=== PATIENT | male | born 1955 | race Caucasian/White ===

== ENCOUNTER 2022-08-06 11:51 | Inpatient (IN) | payer OTHER ==
--- OUTSIDE RECORDS SUMMARY | 2022-08-06 11:55 | XMS REPORT | Continuity of Care Document ---
:1955 Author Organization [facility] t Address [address] [place] [address] Care Team Providers Name Role Phone Jorge Alcaraz MD Primary Care Physician [phone] Jorge Alcaraz MD Attending Clinician JORGE ALCARAZ Attending Clinician Unavailable Windy Sethi Attending Clinician WINDY WISEMAN Attending Clinician Unavailable JOSE MARTINEZ Attending Clinician Unavailable Jose Martinez MD Attending Clinician Nurse, Vls Plastic Surg Attending Clinician Unavailable Doctor Unassigned, [place] Attending Clinician Unavailable Only, Adc Test Attending Clinician Unavailable Adan Ray MD Attending Clinician Lab, Ang - Db Attending Clinician Unavailable CHACHO CARRASCO Attending Clinician Unavailable ADAN RAY Attending Clinician Unavailable ADAN RAY Attending Clinician Unavailable Lab, Adc Fam Pob I Attending Clinician Unavailable Bassam Rios DO Attending Clinician BASSAM RIOS Attending Clinician Unavailable BASSAM RIOS Attending Clinician Unavailable Maycol Rogel MD Attending Clinician Elmer Mcghee MD Attending Clinician Kamilah Walker Attending Clinician Provider, [facility] Attending Clinician Unavailable KAMILAH LORENZO Attending Clinician Unavailable JOSE MARTINEZ Admitting Clinician Unavailable Jose Martinez MD Admitting Clinician Elmer Mcghee MD Admitting Clinician Payers Payer Name Policy Type Policy Number Effective Date Expiration Date Travis GAN CHOICE POS [id number] 2019 00:00:00 II Problems Condition Condition Condition Status Onset Resolution Last Treating Co mments Source Name Details Category Date Date Treatment Clinician Date Bilateral Bilateral Disease Active Overview: Univers carpal carpal 2-24 Formattin ity of tunnel tunnel 00:00: 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 Added automatic ally from request for surgery [id number] Dyspnea Dyspnea Disease Active Univers 8-10 ity of 00:00: [address] Obesity Obesity Disease Active Univers (BMI (BMI 8-10 ity of 30-39.9) 30-39.9) 00:00: [address] Hyperchole Hyperchole Disease Active 2014-09 U nivers steremia steremia 17 ity of 00:: [address] Erectile Erectile Disease Active 2014-09 Unive rs dysfunctio dysfunctio 17 it y of n n 00:00: [address] Essential Essential Disease Active 2014-09 Uni vers hypertensi hypertensi -13 it y of on on 00:00: [address] Allergies, Adverse Reactions, Alerts Allergy Allergy Status Severity Reaction(s) Onset Inactive Treating Comm ents Source Name Type Date Date Clinician NO KNOWN Drug Active Univers ALLERGIE Class ity of S [facility] Social History Social Habit Start Date Stop Date Quantity Comments Source Exposure to 2022-07-26 2022-08-05 Yes [facility] SARS-CoV-2 00:00:00 11:28:00 [facility] (event) [place] Tobacco use and 2022-07-29 2022-07-29 Smokeless tobacco Un iversity of exposure 00:00:00 00:00:00 non-user [facility] Alcohol intake 2022-07-29 2022-07-29 2.57 /d University of 00:00:00 00:00:00 [facility] Sex [birth year] Universit y of 00:00:00 00:00:00 [facility] Smoking Status Start Date Stop Date Source Never smoked tobacco [facility] Medications Ordered Filled Start Stop Current Ordering Indication Dosage Frequency Signature Comments Components Source Medication Medication Date Date Medication? Clinician (SIG) Name Name albuterol 2021-09 Yes INHALE TWO Un bridget 90 1-28 (2) PUFFS ity of mcg/actuati 00:00: EVERY FOUR [place] on inhaler 00 HOURS. Medical Branch methylPREDN 2021-09 Yes USE Univ ers ISolone 4 1-28 DIRECTED ity of mg tablets 00:00: [place]AGE [place] [facility] albuterol 2021-09 Yes INHALE TWO Un bridget 90 1-28 (2) PUFFS ity of mcg/actuati 00:00: EVERY FOUR [place] on inhaler 00 HOURS. Medical Branch methylPREDN 2021-09 Yes USE Univ ers ISolone 4 1-28 DIRECTED ity of mg tablets 00:00: [place] PACKAGE [place] [facility] benzonatate 2021-09 Yes [id number] 100mg Take 1 Univers (TESSALON 1-23 capsule by ity of PERLES) 100 00:00: mouth [place] mg capsule 00 every 8 Medica l (eight) Branch hours as needed for Cough. azithromyci 2021-09 Yes [id number] Take 500 Univers n 250 mg 1-23 mg PO day ity of tablet 00:00: 1, then [place] 00 250 mg PO Medical days 2 to Branch 5 benzonatate 2021-09 Yes [id number] 100mg Take 1 Univers (TESSALON 1-23 capsule by ity of PERLES) 100 00:00: mouth [place] mg capsule 00 every 8 Medica l (eight) Branch hours as needed for Cough. azithromyci 2021-09 Yes [id number] Take 500 Univers n 250 mg 1-23 mg PO day ity of tablet 00:00: 1, then [place] 00 250 mg PO Medical days 2 to Branch 5 benzonatate 2021-09 Yes [id number] 100mg Take 1 Univers (TESSALON 1-23 capsule by ity of PERLES) 100 00:00: mouth [place] mg capsule 00 every 8 Medica l (eight) Branch hours as needed for Cough. azithromyci 2021-09 Yes [id number] Take 500 Univers n 250 mg 1-23 mg PO day ity of tablet 00:00: 1, then [place] 00 250 mg PO Medical days 2 to Branch 5 benzonatate 2021-09 Yes [id number] 100mg Take 1 Univers (TESSALON 1-23 capsule by ity of PERLCURT) 100 00:00: mouth [place] mg capsule 00 every 8 Medica l (eight) Branch hours as needed for Cough. benzonatate 2021-09 Yes [id number] 100mg Take 1 Univers (TESSALON 1-23 capsule by ity of PERLpayasUgym) 100 00:00: mouth [place] mg capsule 00 every 8 Medica l (eight) Branch hours as needed for Cough. azithromyci 2021-09- No [id number] Take 500 Univers n 250 mg 1-23 11-30 mg PO day ity o f tablet 00:00: 00:00 1, then [place] 00 :00 250 mg PO Medical days 2 to Branch 5 azithromyci 2021-09- No [id number] Take 500 Univers n 250 mg 1-23 11-30 mg PO day ity o f tablet 00:00: 00:00 1, then [place] 00 :00 250 mg PO Medical days 2 to Branch 5 No known No Univers medications 4-20 ity of 11:04: [place] 33 Medical Branch Ibuprofen 2021- No [id number] 600mg Take 3 Univers 200 mg 11-25 [id number] capsules ity of capsule 00:00: 04:59 by mouth [place] 00 :00 every 6 Medical (six) Branch hours as needed for Pain (scale 4-6) (Alternate with Tylenol) for up to 30 days. acetaminoph 2021- No [id number] 325mg Take 1 Univers en 11-25 [id number] tablet by ity of (TYLENOL) 00:00: 04:59 mouth [place] 325 mg 00 :00 every 6 Medical tablet (six) Branch hours as needed for Pain (scale 4-6) or Alternate with ibuprofen for pain scale 4-6 for up to 30 days. Immunizations Ordered Filled Immunization Date Status Comments [facility] e Immunization Name Name SARS-COV-2 COVID-19 2021-01-01 Completed Unive rsity of MODERNA VACCINE 00:00:00 [place] Med ical Branch SARS-COV-2 COVID-19 2021-01-01 Completed Unive rsity of MODERNA VACCINE 00:00:00 [place] Med ical Branch SARS-COV-2 COVID-19 2021-01-01 Completed Unive rsity of MODERNA 12+ YRS 00:00:00 [place] Med ical VACCINE Branch SARS-COV-2 COVID-19 2021-01-01 Completed Unive rsity of MODERNA 12+ YRS 00:00:00 [place] Med ical VACCINE Branch SARS-COV-2 COVID-19 2021-01-01 Completed Unive rsity of MODERNA 12+ YRS 00:00:00 [place] Med ical VACCINE Branch SARS-COV-2 COVID-19 2021-01-01 Completed Unive rsity of MODERNA 12+ YRS 00:00:00 [place] Med ical VACCINE Branch SARS-COV-2 COVID-19 2021-01-01 Completed Unive rsity of MODERNA 12+ YRS 00:00:00 [place] Med ical VACCINE Branch SARS-COV-2 COVID-19 2020-12-04 Completed Unive rsity of MODERNA VACCINE 00:00:00 [place] Med ical Branch SARS-COV-2 COVID-19 2020-12-04 Completed Unive rsity of MODERNA VACCINE 00:00:00 [place] Med ical Branch SARS-COV-2 COVID-19 2020-12-04 Completed Unive rsity of MODERNA 12+ YRS 00:00:00 [place] Med ical VACCINE Branch SARS-COV-2 COVID-19 2020-12-04 Completed Unive rsity of MODERNA 12+ YRS 00:00:00 [place] Med ical VACCINE Branch SARS-COV-2 COVID-19 2020-12-04 Completed Unive rsity of MODERNA 12+ YRS 00:00:00 [place] Med ical VACCINE Branch SARS-COV-2 COVID-19 2020-12-04 Completed Unive rsity of MODERNA 12+ YRS 00:00:00 [place] Med ical VACCINE Branch SARS-COV-2 COVID-19 2020-12-04 Completed Unive rsity of MODERNA 12+ YRS 00:00:00 [place] Med ical VACCINE Branch TDAP (ADACEL) 2016-09-07 Completed University of VACCINE 00:00:00 [place] [facility] TDAP (ADACEL) 2016-09-07 Completed University of VACCINE 00:00:00 [place] [facility] [place] TDAP (ADACEL) 2016-09-07 Completed University of VACCINE 00:00:00 [facility] TDAP (ADACEL) 2016-09-07 Completed University of VACCINE 00:00:00 [facility] TDAP (ADACEL) 2016-09-07 Completed University of VACCINE 00:00:00 [facility] TDAP (ADACEL) 2016-09-07 Completed University of VACCINE 00:00:00 [facility] TDAP (ADACEL) 2016-09-07 Completed University of VACCINE 00:00:00 [facility] Vital Signs Vital Name Observation Time Observation Value Comments Source Systolic blood 2022-08-05 17:42:00 122 mm[Hg] Univer sity of pressure [facility] Diastolic blood 2022-08-05 17:42:00 76 mm[Hg] Unive rsity of [facility] Heart rate 2022-08-05 17:42:00 93 /min [facility] Body temperature 2022-08-05 17:42:00 37.33 [facility] Body height 2022-08-05 17:42:00 177.8 cm [facility] Body weight 2022-08-05 17:42:00 116.121 kg [facility] BMI 2022-08-05 17:42:00 36.73 kg/m2 [facility] Oxygen saturation in 2022-08-05 17:42:00 93 /min [facility] Arterial blood by [facility] Pulse oximetry Branch Systolic blood 2022-07-29 14:34:00 139 mm[Hg] Univer sity of pressure [facility] Diastolic blood 2022-07-29 14:34:00 84 mm[Hg] Unive rsity of pressure [facility] Heart rate 2022-07-29 14:34:00 89 /min [facility] Body temperature 2022-07-29 14:34:00 36.78 Judy Univ [facility] Body height 2022-07-29 14:34:00 177.8 cm [facility] Body weight 2022-07-29 14:34:00 116.574 kg Universi ty [facility] [place] BMI 2022-07-29 14:34:00 36.88 kg/m2 Universi [facility] Oxygen saturation in 2022-07-29 14:34:00 95 /min University of Arterial blood by [facility] Pulse oximetry Branch Systolic blood 2021-12-24 16:06:00 133 mm[Hg] Univer sity of pressure [facility] Diastolic blood 2021-12-24 16:06:00 81 mm[Hg] Unive rsity of pressure [facility] Heart rate 2021-12-24 16:06:00 68 /min Universi [facility] Body temperature 2021-12-24 16:06:00 35.78 [facility] Respiratory rate 2021-12-24 16:06:00 18 /min [facility] Body height 2021-12-24 16:06:[address] [facility] Body weight 2021-12-24 16:06:00 108.183 kg Universi [facility] BMI 2021-12-24 16:06:00 34.22 kg/m2 [facility] Oxygen saturation in 2021-12-24 16:06:00 97 /min University of Arterial blood by [facility] Pulse oximetry Branch Procedures This patient has no known procedures. Encounters Start End Encounter Admission Attending Care Care Encounter Source Date/Time Date/Time Type Type Clinicians Facility Department ID 2021-07-04 Emergency [facility] [id number] Univers 11:27:03 ity of [facility] 2022-08-05 2022-08-05 Office Lissa [facility] 1.2.840.[id number] [facility] 11:15:00 11:45:00 Visit Jorge TELLEZ [id number] it y of Andrew [place] 4.2.7.2.686 Tim as TONYA?BLEA [phone] [address] MEDICAL OFFICE BUILDING 2022-08-05 2022-08-05 Outpatient R LISSA [facility] [id number] [facility] 11:15:00 11:15:00 JORGE [facility] 2022-08-03 2022-08-03 [facility] [id number] Univers 00:00:00 00:00:00 Windy A HEALTH [id number] i ty of [facility] 4.2.7.2.686 Tim as TONYA?BLEA [phone] [address] OFFICE [facility] 2022-07-29 2022-07-29 [facility] [id number] Univers 08:54:07 23:59:00 WINDY garcia [facility] [place] 2022-07-29 2022-07-29 [facility] 1.2.840.114 [id number] Univers 08:30:00 08:53:09 Visit Windy Pope HEALTH [id number] i ty of [place] 4.2.7.2.686 Tim as TONYA?BLEA [phone] [facility] DERRELL [address] [place] [address] OFFICE [facility] 2022-03-02 2022-03-02 Telephone [facility] 1.2.840.114 [id number] Univers 00:00:00 00:00:00 [facility] [id number] it y of Andrew [place] 4.2.7.2.686 Tim as TONYA?BLEA [id number] [address] OFFICE [facility] 2021-12-24 2021-12-24 Outpatient R MICHELLE [facility] [id number] Univers 11:00:00 11:16:55 JOSE garcia [facility] [place] 2021-12-24 2021-12-24 [facility] 1.2.840.114 [id number] Univers 11:00:00 11:16:55 Visit Jose SPECIALTY [id number] ity of CARE 4.2.7.2.686 [facility] AT [id number] Mi calekylee ARRIAGA [address] [place] [address] 2021-12-05 2021-12-05 Nurse Nurse, Vls Plastic Surg [facility] 1. 2.840.114 [id number] Univers 08:00:00 08:44:44 Visit Jose Martinez [id number] ity of C[place] 4.2.7.2.686 [place] [facility] AT [id number] Mi calekylee ARRIAGA 201 [facility] 2021-12-05 2021-12-05 Outpatient Giuliana MARTINEZ [facility] [id number] Univers 08:00:00 08:00:00 JOSE garcia [facility] [place] 2021-11-25 2021-11-25 Outpatient Giuliana MARTINEZ [facility] SPL [id number] Univers 08:03:00 10:43:00 JOSE garcia [facility] [place] 2021-11-25 2021-11-25 [facility] 1.2.840.114 [id number] Univers 08:03:00 10:43:00 Encounter Jose [facility] [id number] ity of [place] 4.2.7.2.686 [facility] [phone] [address] ([facility]) 2021-11-25 2021-11-25 [facility] 1.2.840.114 [id number] Univers 09:27:00 10:36:00 [facility] [id number] ity of CARE 4.2.7.2.686 [facility] [place] AT [phone] Mi calekylee ARRIAGA 020 [facility] 2021-11-25 2021-11-25 Orders Doctor OMAR 1.2.840.114 [id number] Univers 00:00:00 00:00:00 Only Unassigned, DORA [id number] ity of [place] [facility] 4.2.7.2.686 Tim [phone] [facility] 009 [place] 2021-11-22 2021-11-22 Laboratory Only, Adc Test [facility] 1.2.840. 114 [id number] Univers 08:00:00 08:15:00 Only Jose Martinez [id number] ity of [place] 4.2.7.2.686 [facility] [id number] [facility] 353 [place] 2021-11-22 2021-11-22 Outpatient Giuliana MARTINEZ [facility] [id number] Univers 08:00:00 08:00:00 JOSE garcia [facility] [place] 2021-10-29 2021-10-29 Outpatient R MICHELLE [facility] [id number] Univers 15:15:00 16:31:56 JOSE ity of [facility] 2021-10-29 2021-10-29 Office Michelle [facility] 1.2.840.114 [id number] Univers 15:15:00 16:31:56 Visit Jose MCALLISTER [id number] ity of C[place] 4.2.7.2.686 [place] C[place] AT [phone] Mi dickylee ARRIAGA 201 [facility] 2021-10-21 2021-10-21 Telephone Flor [facility] 1.2.840.114 [id number] Univers 00:00:00 00:00:00 Adan Ramos [place] [id number] ity of [place] 4.2.7.2.686 [place] [facility] [phone] Mi reginald NAL 092 [facility] 2021-10-09 2021-10-09 Telephone [facility] 1.2.840.114 [id number] Univers 00:00:00 00:00:00 [facility] [id number] it y of Edward [facility] 4.2.7.2.686 Tim as TONYA?BLEA [phone] Mi reginald DOVE 044 [facility] OFFICE [facility] 2021-10-08 2021-10-08 Fluorescent Lighting Model Maker Lab, Ang - [facility] 1.2.840.1 [id number] Univers 11:00:00 11:15:00 Visit Jorge Alcaraz [facility] 350.1.13 .10 ity of [facility] 4.2.7.2.686 Tim as TONYA?BLEA [id number] Mi reginald DOVE 353 [facility] OFFICE BUILDING 2021-10-08 2021-10-08 Office Lissa [facility] 1.2.840.114 [id number] Univers 10:30:00 10:58:30 Visit [facility] [id number] it y of [place] 4.2.7.2.686 Tim as TONYA?BLEA [phone] Mi reginald DOVE 044 [facility] OFFICE [facility] 2021-10-08 2021-10-08 Outpatient R MANEJOSÉ MIGUEL [facility] [id number] Univers 10:30:00 10:58:30 JORGE [facility] 2021-10-08 2021-10-08 Outpatient Giuliana ALCARAZ [facility] [id number] Univers 10:30:00 10:58:30 JORGE [facility] 2021-10-08 2021-10-08 Outpatient Giuliana ALCARAZ [facility] [id number] Univers 10:30:00 10:30:00 JORGE [facility] 2021-10-08 2021-10-08 Orders Doctor OMAR 1.2.840.114 [id number] Univers 00:00:00 00:00:00 Only Unassigned, DORA 350.1.13.10 ity of [facility] 4.2.7.2.686 Tim as [phone] [address] 2021-01-01 2021-01-01 Outpatient Giuliana CARRASCO [facility] [id number] Univers 07:50:00 07:44:00 CHACHO [facility] 2020-12-04 2020-12-04 Outpatient Giuliana CARRASCO [facility] [id number] Univers 12:30:00 12:39:56 CHACHO [facility] 2020-08-27 2020-08-27 Office Flor [facility] 1.2.840.114 [id number] Univers 11:22:17 12:00:50 Visit Adan [place] 350.1.13.10 ity [facility] 4.2.7.2.686 [place] Profess[place] [phone] [facility] 092 [facility] 2020-08-27 2020-08-27 Outpatient ADAN FAIRCHILD [facility] [id number] Univers 11:20:00 11:20:00 ADAN RAY [facility] 2020-08-22 2020-08-22 Outpatient ADAN FAIRCHILD [facility] [id number] Univers 08:00:00 08:00:00 ADAN RAY [facility] 2020-07-10 2020-07-10 Telephone Flor [facility] 1.2.840.114 [id number] Univers 00:00:00 00:00:00 Adan Fleming 350.1.13.10 ity of [place] 4.2.7.2.686 [place] Profess[place] [phone] Mi dicwv nal 092 [facility] 2020-07-04 2020-07-04 Office SUZIE Ray 1.2.840.114 [id number] Univers 10:38:47 11:57:15 Visit Adan Perry HEALTH 350.1.13.10 ity of [facility] 4.2.7.2.686 [place] [id number] [facility] [address] [place] [address] 2020-07-04 2020-07-04 Outpatient R ADAN RAY [facility] [id number] [facility] 11:00:00 11:00:00 [facility] [place] [facility] 2020-06-24 2020-06-24 Fluorescent Lighting Model Maker Lab, Adc Fam Pob I [facility] 1.2. 840.114 [id number] Univers 08:59:30 09:19:30 Visit Jorge Alcaraz [facility] 350.1.13 .10 ity of [place] 4.2.7.2.686 Tim as Professio [phone] [facility] 044 [facility] 2020-06-24 2020-06-24 Office [facility] 1.2.840.[id number] [facility] 08:19:29 08:49:29 Visit Jorge [facility] 350.1.13.10 it y of [place] 4.2.7.2.686 Tim as Professio [phone] Mi dic[address] [facility] 2020-06-24 2020-06-24 Outpatient R LISSA [facility] [id number] Univers 08:30:00 08:30:00 [facility] 2020-06-20 2020-06-20 [facility] [id number] Univers 08:26:59 23:59:00 Encounter Jorge [place] 350.1.13.10 ity of [place] 4.2.7.2.686 [place] Rew [id number] [facility] 807 [place] 2020-06-20 2020-06-20 [facility] [id number] Univers 00:00:00 00:00:00 JORGE maloneraymundo [facility] [place] 2020-06-20 2020-06-20 Orders Doctor OMAR 1.2.840.114 [id number] Univers 00:00:00 00:00:00 Only Unassigned, DORA 350.1.13.10 ity of [place] [facility] 4.2.7.2.686 Tim as [id number] [facility] 009 [place] 2020-06-17 2020-06-17 Telephone [facility] 1.2.840.114 [id number] Univers 00:00:00 00:00:00 Jorge [facility] 350.1.13.10 it y of [place] 4.2.7.2.686 Tim as Professio [phone] [address] Office Building One 2020-05-09 2020-05-09 [facility] [id number] Univers 08:30:00 08:30:00 JORGE garcia [facility] [place] 2020-05-09 2020-05-09 Telemedici [facility] 1.2.840.114 [id number] Univers 08:03:39 08:18:39 ne Visit Jorge [place] 350.1.13.10 ity of [place].2.7.2.686 [place] Profess[place] [phone] [address] Building 2020-05-07 2020-05-07 [facility] 1.2.840.114 [id number] Univers 10:58:13 23:59:00 Encounter Bassam [place] 350.1.13.10 ity of [place] 4.2.7.2.686 [place] Rew [id number] [facility] 807 [place] 2020-05-07 2020-05-07 Outpatient R BASSAM RIOS [facility] [id number] Univers 00:00:00 00:00:00 BASSAM RIOS i [facility] [place] 2020-05-02 2020-05-02 Telephone JOI Alcaraz 1.2.840.114 [id number] Univers 00:00:00 00:00:00 Jorge Joel 350.1.13.[address] [facility] 4.2.7.2.686 Tim as [id number] [facility] 273 [place] 2020-04-18 2020-04-18 Office Sariah [facility] 1.2.840.114 [id number] Univers 14:52:44 15:12:44 Visit Bassam Fleming 350.1.13.10 i ty of [place] 4.2.7.2.686 [place] Profess[place] [phone] Mi dical nal 085 [facility] 2020-04-18 2020-04-18 Outpatient R BASSAM RIOS [facility] [id number] Univers 15:00:00 15:00:00 BASSAM RIOS i ty of [facility] 2020-04-15 2020-04-16 Emergency Maycol Rogel [facility] 1.2.840. 114 [id number] Univers 08:37:00 10:35:00 Elmer Mcghee 350.1.13.10 ity of [place] 4.2.7.2.686 [place] Rew [id number] [facility] 081 Branch 2020-04-11 2020-04-11 Hospital [facility] 1.2.840.114 [id number] Univers 09:20:00 23:59:00 Encounter Kamilah [place] 350.1.13.10 ity of [place] 4.2.7.2.686 [place] Rew [id number] [facility] 801 [place] 2020-04-11 2020-04-11 Outpatient R LISSA [facility] [id number] Univers 15:30:00 15:30:00 JORGE ity of [facility] 2020-04-11 2020-04-11 Telemedici Lissa [facility] 1.2.840.114 [id number] Univers 08:28:41 08:43:41 ne Visit Jorge Fleming 350.1.13.10 ity of [place] 4.2.7.2.686 [place] Profess[place] [phone] Mi dical nal 044 [facility] 2020-04-08 2020-04-09 Urgent Provider, [facility] Urgent Care [facility] 1.2.840.114 [id number] Univers 08:40:00 08:38:14 [place] Kamilah Lorenzo [facility] 350.1.13.10 ity [facility] 4.2.7.2.686 [facility] [phone] Mi dical [facility] 044 Branch Office Building One 2020-04-08 2020-04-08 Outpatient [facility] [id number] Univers 16:23:49 23:59:00 KAMILAH ity [facility] [place] 2020-04-08 2020-04-08 [facility] 1.2.840.114 [id number] Univers 09:25:00 23:59:00 Encounter Kamilah [place] 350.1.13.10 ity maggie [place] 4.2.7.2.[address] [facility] [id number] [facility] 807 [place] 2019-06-23 2019-06-23 Outpatient Giuliana MANEJOSÉ MIGUEL [facility] [id number] Univers 08:30:00 09:00:19 JORGE garcia [facility] [place] Results This patient has no known results.
[2022-08-06 12:31] LABS: Absolute Lymphocytes (CBC) 1.1 K/uL (0.7-4.9); Hematocrit 38.8 % (39.6-49.0); Lymphocytes % 7.8 % (15.3-44.8); MCV 87.3 fL (80-100); MPV 6.8 fL (7.6-11.3); RBC Red Blood Cell Count 4.44 M/uL (4.33-5.43)
[2022-08-06] MEDS ORDERED: METOPROLOL TARTRATE 5 MG/5 ML INJ IV ONE (12:35)
[2022-08-06] MEDS ORDERED: METOPROLOL TAR 50 MG TAB ONE (12:35)
[2022-08-06 12:42] LABS: Potassium 4.3 mmol/L (3.5-5.1); Troponin High Sensitivity 7.9 pg/mL (<58.9)
[2022-08-06 13:04] LABS: Protime INR 1.44
[2022-08-06 13:20] LABS: Albumin 2.6 g/dL (3.4-5.0); Bilirubin Direct 0.2 mg/dL (0-0.2); Bilirubin Total 0.4 mg/dL (0.2-1.0); Magnesium 2.3 mg/dL (1.8-2.4); Protein, Total 6.8 g/dL (6.4-8.2)
--- NOTE | 2022-08-06 13:36 | RAD REPORT ---
EXAM DESCRIPTION: RAD - Chest Single View - 08/06/2022 1:21 pm CLINICAL HISTORY: CHEST PAIN Chest pain. COMPARISON: No comparisons FINDINGS: Portable technique limits examination quality. The lungs are grossly clear. There is prominent cardiomegaly noted. No displaced fractures. IMPRESSION: Significant cardiomegaly.
--- NOTE | 2022-08-06 13:50 | ER ---
Nurse's Notes [facility] Name: Nathalie Bacon Age: 67 yrs Sex: Male : 1955 Arrival Date: 08/06/2022 Time: 11:53 Bed 23 Private MD: Mick Chaudhary Diagnosis: Unspecified atrial flutter;Shortness of breath Presentation: 08/06 11:57 Method Of Arrival: Ambulatory ld1 11:57 Chief complaint: Patient states: SOB, Cough, low grade fever X 2 weeks. Pt reports ld1 going to Dr. Khalil to get heart checked today - doctor referred to ER to get checked out. Annie office said pt has new onset AFIB. Coronavirus screen: At this time, the client does not indicate any symptoms associated with coronavirus-19. Ebola Screen: No symptoms or risks identified at this time. Initial Sepsis Screen: Does the patient meet any 2 criteria? No. Patient's initial sepsis screen is negative. Does the patient have a suspected source of infection? No. Patient's initial sepsis screen is negative. Risk Assessment: Do you want to hurt yourself or someone else? Patient reports no desire to harm self or others. Onset of symptoms was August 06, 2022 at 12:00. 11:57 Acuity: SHANIQUA 3 ld1 Triage Assessment: 11:57 General: Appears in no apparent distress. comfortable, Behavior is calm, cooperative, ld1 appropriate for age. Pain: Denies pain. EENT: No signs and/or symptoms were reported regarding the EENT system. Neuro: Level of Consciousness is awake, alert, obeys commands, Oriented to person, place, time, situation. Cardiovascular: Capillary refill < 3 seconds Patient's skin is warm and dry. Rhythm is sinus tachycardia Chest pain is denied. Respiratory: Reports shortness of breath cough that is non-productive, Airway is patent Respiratory effort is even, unlabored. GI: Abdomen is round non-distended. : No signs and/or symptoms were reported regarding the genitourinary system. Derm: No signs and/or symptoms reported regarding the dermatologic system. Musculoskeletal: No signs and/or symptoms reported regarding the musculoskeletal system. Historical: - Allergies: 11:57 No Known Allergies; ld1 - Home Meds: 11:57 None [Active]; ld1 - PMHx: 11:57 None; ld1 - PSHx: 11:57 None; ld1 - Immunization history:: Adult Immunizations up to date, Client reports receiving the 2nd dose of the Covid vaccine. - Social history:: Smoking status: Patient denies any tobacco usage or history of. Patient uses alcohol, on a daily basis. Screenin:24 Abuse screen: Denies threats or abuse. Denies injuries from another. Nutritional hb screening: No deficits noted. Tuberculosis screening: No symptoms or risk factors identified. Fall Risk None identified. Assessment: 12:24 General: Appears in no apparent distress. Behavior is calm, cooperative. Pain: Denies hb pain. Neuro: Level of Consciousness is awake, alert, obeys commands, Oriented to person, place, time, situation. Cardiovascular: Patient's skin is warm and dry. Respiratory: Reports shortness of breath at rest cough that is non-productive, persistent Respiratory effort is even, unlabored, Respiratory pattern is regular, symmetrical. GI: No signs and/or symptoms were reported involving the gastrointestinal system. : No signs and/or symptoms were reported regarding the genitourinary system. EENT: No signs and/or symptoms were reported regarding the EENT system. Derm: Skin is pink, warm \T\ dry. Musculoskeletal: No signs and/or symptoms reported regarding the musculoskeletal system. 13:23 Reassessment: Patient appears in no apparent distress at this time. Patient and/or hb family updated on plan of care and expected duration. Pain level reassessed. Patient is alert, oriented x 3, equal unlabored respirations, skin warm/dry/pink. 14:30 Reassessment: Patient appears in no apparent distress at this time. Patient and/or hb family updated on plan of care and expected duration. Pain level reassessed. Patient is alert, oriented x 3, equal unlabored respirations, skin warm/dry/pink. 15:33 Reassessment: Patient appears in no apparent distress at this time. Patient and/or hb family updated on plan of care and expected duration. Pain level reassessed. Patient is alert, oriented x 3, equal unlabored respirations, skin warm/dry/pink. 16:30 Reassessment: Patient appears in no apparent distress at this time. Patient and/or hb family updated on plan of care and expected duration. Pain level reassessed. Patient is alert, oriented x 3, equal unlabored respirations, skin warm/dry/pink. 17:30 Reassessment: Patient appears in no apparent distress at this time. Patient and/or hb family updated on plan of care and expected duration. Pain level reassessed. Patient is alert, oriented x 3, equal unlabored respirations, skin warm/dry/pink. 18:45 Reassessment: Patient appears in no apparent distress at this time. Patient and/or hb family updated on plan of care and expected duration. Pain level reassessed. Patient is alert, oriented x 3, equal unlabored respirations, skin warm/dry/pink. Vital Signs: 11:57 BP 130 / 78; Pulse 112; Resp 22; Temp 98.6(TE); Pulse Ox 95% on R/A; Weight 113.4 kg; ld1 Height 5 ft. 10 in. (177.80 cm); Pain 0/10; 13:22 BP 103 / 85; Pulse 90; Resp 17; Pulse Ox 97% on R/A; hb 15:33 BP 120 / 77; Pulse 96; Resp 17; Pulse Ox 96% on R/A; hb 17:30 BP 121 / 72; Pulse 112; Resp 15; Pulse Ox 98% on R/A; hb 19:09 BP 115 / 79; Pulse 107; Resp 16; Pulse Ox 100% on R/A; Pain 0/10; hb 11:57 Body Mass Index 35.87 (113.40 kg, 177.80 cm) ld1 ED Course: 11:53 Patient arrived in ED. am2 11:53 Mick Chaudhary MD is Private Physician. am2 11:55 [facility] jh7 11:55 González Johnson MD is Attending Physician. jh7 11:57 Arm band placed on right wrist. ld1 12:00 Triage completed. ld1 12:21 Inserted saline lock: 20 gauge in right antecubital area, using aseptic technique. hb Blood collected. 12:24 Nicky Fortune, ROBERT is Primary Nurse. hb 12:24 Patient has correct armband on for positive identification. hb 13:23 XRAY Chest (1 view) In Process Unspecified. EDMS 13:48 Shay Quintanilla is Hospitalizing Provider. jh7 13:50 Rakan Mullins MD is Hospitalizing Provider. jh7 Administered Medications: 12:33 Drug: Metoprolol 5 mg Route: IVP; Site: right antecubital; 12:33 Drug: Lopressor (metoprolol TARTRATE) 50 mg Route: PO; Medication: 12:24 VIS not applicable for this client. hb Outcome: 13:49 Decision to Hospitalize by Provider. jh7 20:06 Patient left the ED. hb Signatures: Dispatcher [employer] EDMS Nicky Fortune RN RN Rebecca Rojas am2 Estrella Quintana RN RN ld1 Benita Ho FNP OPERATIONS AND MAINTENANCE TECHNICIAN [facility] Corrections: (The following items were deleted from the chart) 12:00 11:57 Chief complaint: Patient states: SOB, Cough, low grade fever X 2 weeks. Pt ld1 reports going to Dr. Khalil to get heart checked today - doctor referred to ER to get checked out. ld1
--- NOTE | 2022-08-06 13:50 | EDPHYS ---
Physician Documentation [facility] Name: Nathalie Bacon Age: 67 yrs Sex: Male : 1955 Arrival Date: 08/06/2022 Time: 11:53 Bed 23 Private MD: Mick Chaudhary ED Physician González Johnson HPI: 08/06 12:00 This 67 yrs old Male presents to ER via Ambulatory with complaints of high HR, jh7 Shortness Of Breath, Cough. 12:00 Onset: The symptoms/episode began/occurred 2 week(s) ago. Associated signs and jh7 symptoms: Pertinent positives: cough, fever, shortness of breath. Patient reports shortness of breath, cough, and intermittent fever for the past 2 weeks. States that he experienced palpitations today and was seen in Dr. Plasencia's office this morning. The patient was told to go to the ER due to new onset A. fib RVR. Dr. Plasencia requested admission and rate control.. Historical: - Allergies: 11:57 No Known Allergies; ld1 - Home Meds: 11:57 None [Active]; ld1 - PMHx: 11:57 None; ld1 - PSHx: 11:57 None; ld1 - Immunization history:: Adult Immunizations up to date, Client reports receiving the 2nd dose of the Covid vaccine. - Social history:: Smoking status: Patient denies any tobacco usage or history of. Patient uses alcohol, on a daily basis. ROS: 12:00 Constitutional: Negative for fever, chills, and weight loss, Eyes: Negative for injury, jh7 pain, redness, and discharge, ENT: Negative for injury, pain, and discharge, Neck: Negative for injury, pain, and swelling, Abdomen/GI: Negative for abdominal pain, nausea, vomiting, diarrhea, and constipation, Back: Negative for injury and pain, MS/Extremity: Negative for injury and deformity, Skin: Negative for injury, rash, and discoloration, Neuro: Negative for headache, weakness, numbness, tingling, and seizure. 12:00 Cardiovascular: Positive for palpitations, Negative for chest pain. 12:00 Respiratory: Positive for cough, shortness of breath, Negative for wheezing. 12:00 All other systems are negative. Exam: 12:00 Constitutional: This is a well developed, well nourished patient who is awake, alert, jh7 and in no acute distress. Head/Face: Normocephalic, atraumatic. Eyes: Pupils equal round and reactive to light, extra-ocular motions intact. Lids and lashes normal. Conjunctiva and sclera are non-icteric and not injected. Cornea within normal limits. Periorbital areas with no swelling, redness, or edema. Neck: Trachea midline, no thyromegaly or masses palpated, and no cervical lymphadenopathy. Supple, full range of motion without nuchal rigidity, or vertebral point tenderness. No Meningismus. Cardiovascular: Regular rate and rhythm with a normal S1 and S2. No gallops, murmurs, or rubs. Normal PMI, no JVD. No pulse deficits. Respiratory: Lungs have equal breath sounds bilaterally, clear to auscultation and percussion. No rales, rhonchi or wheezes noted. No increased work of breathing, no retractions or nasal flaring. Abdomen/GI: Soft, non-tender, with normal bowel sounds. No distension or tympany. No guarding or rebound. No evidence of tenderness throughout. Skin: Warm, dry with normal turgor. Normal color with no rashes, no lesions, and no evidence of cellulitis. MS/ Extremity: Pulses equal, no cyanosis. Neurovascular intact. Full, normal range of motion. Neuro: Awake and alert, GCS 15, oriented to person, place, time, and situation. Motor strength 5/5 in all extremities. Sensory grossly intact. Normal gait. 12:00 ECG was reviewed by the Attending Physician. Vital Signs: 11:57 BP 130 / 78; Pulse 112; Resp 22; Temp 98.6(TE); Pulse Ox 95% on R/A; Weight 113.4 kg; ld1 Height 5 ft. 10 in. (177.80 cm); Pain 0/10; 13:22 BP 103 / 85; Pulse 90; Resp 17; Pulse Ox 97% on R/A; hb 15:33 BP 120 / 77; Pulse 96; Resp 17; Pulse Ox 96% on R/A; hb 17:30 BP 121 / 72; Pulse 112; Resp 15; Pulse Ox 98% on R/A; hb 19:09 BP 115 / 79; Pulse 107; Resp 16; Pulse Ox 100% on R/A; Pain 0/10; hb 11:57 Body Mass Index 35.87 (113.40 kg, 177.80 cm) ld1 MDM: 11:55 Patient medically screened. [facility] 14:00 Differential diagnosis: A. fib RVR, pneumonia, bronchitis. Data reviewed: vital signs, [facility] nurses notes, lab test result(s), EKG, radiologic studies, plain films. Data interpreted: Pulse oximetry: is 97 %. Interpretation: normal. Counseling: I had a detailed discussion with the patient and/or guardian regarding: the historical points, exam findings, and any diagnostic results supporting the discharge/admit diagnosis, the need for further work-up and treatment in the hospital. ED course: Spoke with hospitalist Livia Vazquez regarding admission. She requested admission to Dr. Mullins.. 08/06 12:01 Order name: Basic Metabolic Panel; Complete Time: 13:17 [facility] 08/06 12:01 Order name: CBC with Diff; Complete Time: 12:40 [facility] 08/06 12:01 Order name: Troponin HS; Complete Time: 13:17 [facility] 08/06 12:13 Order name: LFT's; Complete Time: 13:43 [facility] 08/06 12:13 Order name: Magnesium; Complete Time: 13:43 [facility] 08/06 12:13 Order name: NT PRO-BNP; Complete Time: 13:43 [facility] 08/06 12:13 Order name: PT-INR; Complete Time: 13:17 [facility] 08/06 12:53 Order name: COVID-19/FLU A+B; Complete Time: 14:08 [facility] 08/06 14:27 Order name: T4 Free EDNC 08/06 14:27 Order name: Thyroid Stimulating Hormone [facility] 08/06 14:27 Order name: Urinalysis [facility] 08/06 14:27 Order name: Basic Metabolic Panel [facility] 08/06 14:27 Order name: Basic Metabolic Panel [facility] 08/06 14:27 Order name: CBC with Automated Diff [facility] 08/06 14:27 Order name: CBC with Automated Diff [facility] 08/06 14:27 Order name: CKMB Creatine Kinase MB EDNC 08/06 14:27 Order name: CKMB Creatine Kinase MB EDNC 08/06 14:27 Order name: CKMB Creatine Kinase MB EDNC 08/06 14:27 Order name: CKMB Creatine Kinase MB EDNC 08/06 14:27 Order name: Comprehensive Metabolic Panel EDMS 08/06 14:27 Order name: Comprehensive Metabolic Panel EDMS 08/06 14:27 Order name: Lipid Profile EDMS 08/06 14:27 Order name: Lipid Profile EDMS 08/06 14:27 Order name: Magnesium EDMS 08/06 14:27 Order name: Magnesium EDMS 08/06 14:27 Order name: Phosphorus EDMS 08/06 14:27 Order name: Phosphorus EDMS 08/06 14:27 Order name: Protime (+INR) EDMS 08/06 14:27 Order name: Protime (+INR) EDMS 08/06 14:27 Order name: PTT, Activated Partial Thromb EDMS 08/06 12:01 Order name: XRAY Chest (1 view); Complete Time: 13:43 ld1 08/06 12:01 Order name: EKG; Complete Time: 12:01 ld1 12 12:01 Order name: Cardiac monitoring; Complete Time: 12:23 ld1 12 12:01 Order name: EKG - Nurse/Tech; Complete Time: 12:23 ld1 12 12:01 Order name: IV Saline Lock; Complete Time: 12:23 ld1 12 12:01 Order name: Labs collected and sent; Complete Time: 12:23 ld1 12 12:01 Order name: O2 Per Protocol; Complete Time: 12:23 ld1 12 12:01 Order name: O2 Sat Monitoring; Complete Time: 12:23 ld1 12 14:27 Order name: CONS Physician Consult EDNC 08/06 14:27 Order name: Heart Healthy EDNC 08/06 14:27 Order name: Echo with Doppler EDMS 08/06 14:27 Order name: PTT, Activated Partial Thromb EDMS 08/06 15:41 Order name: CT EDNC EC:00 Rate is 119 beats/min. Rhythm is irregular. QRS [place] is Normal. QRS interval is normal jh7 at 116 msec. QT interval is normal at 280 msec. No Q waves. T waves are Normal. Clinical impression: Atrial Flutter. Administered Medications: 12:33 Drug: Metoprolol 5 mg Route: IVP; Site: right antecubital; hb 12:33 Drug: Lopressor (metoprolol TARTRATE) 50 mg Route: PO; hb Disposition Summary: 08/06/22 13:49 Hospitalization Ordered Hospitalization Status: Inpatient Admission [facility] Location: Telemetry/MedSurg (Inpatient) [facility] Condition: Stable [facility] Problem: new 7 Symptoms: have improved [facility] Bed/Room Type: Standard [facility] Provider: Rakan Mullins(08/06/22 13:51) [facility] Room Assignment: 222(08/06/22 17:39) em1 Diagnosis - Unspecified atrial flutter 7 - Shortness of breath [facility] Forms: - Medication Reconciliation Form 7 - SBAR form [facility] Addendum: 08/09/2022 08:01 Co-signature as Attending Physician, González Johnson MD I agree with the assessment and c [place] plan of care. Signatures: Dispatcher [employer] EDMS González Johnson MD MD cha Martinez, Eric em1 Nicky Fortune RN RN Estrella Quintana RN RN 1 Benita Ho, BUSHEL WORKER [place] [id number] Corrections: (The following items were deleted from the chart) 08/06 13:51 13:49 Shay Quintanilla [place] [id number] 14:00 12:00 This 67 yrs old Male presents to ER via Ambulatory with complaints of high HR, jh7 Shortness Of Breath, Cough. [facility] 17:39 13:49 7 em1
[2022-08-06 14:01] LABS: SARS-COV-2 RT PCR NEGATIVE (NEGATIVE)
--- NOTE | 2022-08-06 14:49 | P.HP ---
Certification for Inpatient Patient admitted to: Inpatient With expected LOS: >2 Midnights Patient will require the following post-hospital care: None Practitioner: I am a practitioner with admitting privileges, knowledge of patient current condition, hospital course, and medical plan of care. Services: Services provided to patient in accordance with Admission requirements found in Title 42 Section 412.3 of the Code of Federal Regulations Patient History Date of Service: 08/06/22 Reason for admission: Dyspnea on exertion; A.flutter RVR History of Present Illness: Patient is a 67yo who was admitted to the hospital with atrial flutter with RVR. Patient has been having persistent cough on and off for 2 weeks. He states he had something similar happen about 3 years ago. He states he was around dust and he ended up having 900 cc overall right-sided pleural effusion. He states that her not really sure how that occurred. He has been feeling congested and short of breath for the last couple weeks. Saw his primary care provider after he was told he may have cardiomegaly. He had been to the emergency room at a local hospital. He was referred over to cardiology where he was found to be in a flutter with rapid ventricular response. He was sent to our hospital for further evaluation. Patient also has cardiomegaly on his chest x-ray. He will be admitted for hospitalization. Allergies No Known Allergies Allergy (Verified 08/06/22 21:54) Home Medications: Albuterol Inhaler [Ventolin Inhaler] 2 puff IH Q6H PRN 08/07/22 Benzonatate 100 mg PO Q8HP PRN 08/07/22 Methylprednisolone [Medrol dosepack] 4 mg PO DIRECTED 08/07/22 - Past Medical/Surgical History -: Right-sided pleural effusion -: Thoracentesis - Family History Father Family History: Reviewed- Non-Contributory - Social History Smoking Status: Never smoker Alcohol use: No CD- Drugs: No Review of Systems 10-point ROS is otherwise unremarkable Physical Examination - Vital Signs Temperature: 98 F Blood Pressure: 150/90 Pulse: 76 Respirations: 18 Pulse Ox (%): 96 - Physical Exam General: Alert, In no apparent distress, Oriented x3 HEENT: Atraumatic, PERRLA, Mucous membr. moist/pink, EOMI, Sclerae nonicteric Neck: Supple, 2+ carotid pulse no bruit, No LAD, Without JVD or thyroid abnormality Respiratory: Diminished, Crackles/rales Cardiovascular: Regular rate/rhythm, Normal S1 S2, Systolic murmur Gastrointestinal: Normal bowel sounds, Soft and benign, Non-distended, No tenderness Musculoskeletal: No clubbing, No swelling, No tenderness Integumentary: No rashes Neurological: Normal gait, Normal speech, Normal strength at 5/5 x4 extr, Normal tone, Sensation intact, Cranial nerves 3-12 intact, Normal affect Lymphatics: No axilla or inguinal lymphadenopathy - Studies Laboratory Data (last 24 hrs) 08/06/22 12:55: PT 15.8 H, INR 1.44 08/06/22 12:55: Magnesium 2.3, Total Bilirubin 0.4, AST 78 H, ALT 165 H, Alkaline Phosphatase 95 08/06/22 12:16: WBC 13.60 H, Hgb 13.0 L, Hct 38.8 L, Plt Count 601 H 08/06/22 12:16: Sodium 138, Potassium 4.3, BUN 19 H, Creatinine 0.73, Glucose 104 Assessment & Plan - Problems (Diagnosis) (1) Atrial flutter with rapid ventricular response Current Visit: Yes Status: Acute (2) Cardiomegaly Current Visit: Yes Status: Acute (3) Shortness of breath Current Visit: Yes Status: Acute (4) Hypoalbuminemia Current Visit: Yes Status: Acute - Plan PLAN: 1. Echocardiogram 2. CT of the chest abdomen and pelvis 3. IV digoxin for rate control 4. Cardiology consultation 5. Aggressive diuresis 6. Strict I's and O's 7. Repeat CXR 8. Daily weights 9. Education regarding diet and treatment of congestive heart failure Discharge Plan: Home Plan to discharge in: Greater than 2 days - Advance Directives Does patient have a Living Will: No Does patient have a Durable POA for Healthcare: No - Code Status/Comfort Care Code Status Assessed: Yes Code Status: Full Code Critical Care: No Time Spent Managing PTS Care (In Minutes): 45
[2022-08-06] MEDS ORDERED: DIGOXIN 0.25 MG/ML AMP IV ONE (15:00)
[2022-08-06 15:16] LABS: Thyroid Stimulating Hormone 1.07 uIU/mL (0.360-3.740)
--- NOTE | 2022-08-06 15:40 | RAD REPORT ---
EXAM DESCRIPTION: CT - Chest Abdomen Pelvis W Cont - 08/06/2022 3:28 pm CLINICAL HISTORY: Chest and abdomen pain. Dyspnea; abdominal distention; cardiomegaly COMPARISON: No comparisons TECHNIQUE: Approximately 100 mL nonionic IV contrast was administered to the patient. All CT scans are performed using dose optimization technique as appropriate and may include automated exposure control or mA/KV adjustment according to patient size. FINDINGS: 22 mm nodule extends off the inferior aspect the left thyroid gland into the upper mediast inum.Mild linear atelectasis is present in both lung bases. No pulmonary nodule, mass or infiltrate s een.Moderate pericardial effusion and trace bilateral pleural effusions are seen, slightly larger on the left.Mildly prominent lymph nodes are seen in the mediastinum, not reaching pathologically enlarg ed based on CT criteria. The liver demonstrates mild fatty liver. Spleen, pancreas, adrenal glands and kidneys are within norm al limits. No bowel obstruction, free air, free fluid or abscess. Normal appendix. Small fat containing umbilica l hernia. No pathologic lymphadenopathy in the abdomen or pelvis. Mild lumbar degenerative changes. IMPRESSION: Moderate pericardial effusion and trace bilateral pleural effusions. Prominent diffuse fatty liver. Mild subsegmental atelectasis in both lung bases.
[2022-08-06] MEDS: ENOXAPARIN 40 MG/0.4 ML SQ SCH (20:48)
[2022-08-06 22:24] VITALS: BMI 35.9
[2022-08-07 06:24] LABS: Absolute Lymphocytes (CBC) 1.2 K/uL (0.7-4.9); Hematocrit 37.6 % (39.6-49.0); Lymphocytes % 15.6 % (15.3-44.8); MCV 87.6 fL (80-100); MPV 6.6 fL (7.6-11.3); RBC Red Blood Cell Count 4.29 M/uL (4.33-5.43)
[2022-08-07 06:31] LABS: Protime INR 1.43
[2022-08-07 06:50] LABS: Albumin 2.4 g/dL (3.4-5.0); Bilirubin Total 0.4 mg/dL (0.2-1.0); Magnesium 2.2 mg/dL (1.8-2.4); Protein, Total 6.5 g/dL (6.4-8.2)
--- NOTE | 2022-08-07 07:52 | EKG ---
Test Date: 2022-08-06 Test Time: 12:16:01 Core Setter: DEON MEASUREMENT RESULTS: Intervals: Rate: 119 AR: QRSD: 116 QT: 280 QTc: 393 Kulm: P: AR: QRS: 68 T: 12 INTERPRETIVE STATEMENTS: Atrial flutter with variable AV block Incomplete right bundle branch block Abnormal ECG No previous ECG available for comparison Electronically Signed On 08-07-22 07:49:08 [employer] STUDIES PROFESSOR by Dustin Lucia
[2022-08-07] MEDS ORDERED: DIGOXIN 0.125 MG TABLET PO SCH (09:00)
--- NOTE | 2022-08-07 09:23 | ECHO ---
HEIGHT: 5 ft 10 in WEIGHT: 250 lb 0.067 oz DATE OF STUDY: 08/06/[address]: Livia Ojeda ENGINEERING PSYCHOLOGIST-BC 2-DIMENSIONAL: YES M.MODE: YES DOPPLER: YES COLOR FLOW: YES TDS: YES PORTABLE: YES DEFINITY: NO BUBBLE STUDY: NO DIAGNOSIS: ATRIAL FIBRILLATION/CHF CARDIAC HISTORY: CATHERIZATION: NO SURGERY: NO PROSTHETIC VALVE: NO PACEMAKER: NO MEASUREMENTS (cm) DIASTOLIC (NORMALS) SYSTOLIC (NORMALS) IVSd (0.6-1.2) LA Diam (1.9-4.0) LVEF % LVIDd (3.5-5.7) LVIDs (2.0-3.5) %FS % LVPWd (0.6-1.2) Ao Diam (2.0-3.7) 2 DIMENSIONAL ASSESSMENT: RIGHT ATRIUM: LEFT ATRIUM: RIGHT VENTRICLE: LEFT VENTRICLE: TRICUSPID VALVE: MITRAL VALVE: PULMONIC VALVE: AORTIC VALVE: PERICARDIAL EFFUSION: AORTIC ROOT: LEFT VENTRICULAR WALL MOTION: DOPPLER/COLOR FLOW: COMMENTS: 1. TECHNICALLY DIFFICULT STUDY 2. GROSSLY NORMAL LEFT VENTRICULAR EJECTION FRACTION AND SIZE 3. PERICARDIAL EFFUSION SMALL 4. NO TAMPONADE 5. ATIRAL FIBRILLATION TECHNOLOGIST: BINTA DAI
[2022-08-07] MEDS: ENOXAPARIN 40 MG/0.4 ML SQ SCH (09:39)
--- NOTE | 2022-08-07 10:01 | RAD REPORT ---
EXAM DESCRIPTION: US - Thyroid Para Parotid Gland - 08/07/2022 9:31 am CLINICAL HISTORY: neck mass COMPARISON: Chest Abdomen Pelvis W Cont dated 08/06/2022 FINDINGS: Right lobe of the thyroid measures 4.5 x 1.9 x 1.8 cm with volume of 7.4 cc. The left lobe of the thyroid measures 4.2 x 1.7 x 2 cm with volume of 7.1 cc . The echotexture of the thyroid is h eterogeneous. Solid nodule in the left lower pole thyroid measuring 9 millimeters that is isoechoic. No suspicious microcalcifications. A second nodule with lobular borders and isoechoic measuring 2 x 1 .6 x 1.7 cm is present in the lower pole the left thyroid. No calcifications are seen. TI-RADS 4: Mod erately suspicious. FNA >= 1.5 cm. Follow if >= 1 cm. IMPRESSION: Nonspecific heterogeneous thyroid. Left thyroid nodule measuring 2 cm meets imaging crit eria for fine-needle aspiration.
[2022-08-07] MEDS ORDERED: DIGOXIN 0.25 MG/ML AMP IV ONE (13:00)
[2022-08-07] MEDS ORDERED: METOPROLOL TARTRATE 5 MG/5 ML INJ IV STA ×2 (17:30→17:45)
[2022-08-07] MEDS: METOPROLOL TAR 25 MG TAB PO SCH (18:00)
[2022-08-07] MEDS: APIXABAN 5 MG TABLET PO SCH (20:50)
[2022-08-08] MEDS: METOPROLOL TAR 25 MG TAB PO SCH (05:35)
[2022-08-08] MEDS ORDERED: DIGOXIN 0.125 MG TABLET PO SCH (09:00)
[2022-08-08] MEDS: APIXABAN 5 MG TABLET PO SCH (09:31)
[2022-08-08 09:54] VITALS: O2SAT 94
[2022-08-08 13:37] VITALS: BP 119/76; TEMP 97.4
--- NOTE | 2022-08-10 06:17 | CON ---
Date of Consultation: 08/07/2022 Reason For Consultation: New onset atrial fibrillation. History Of Present Illness: Mr. Bacon is a 67-year-old male, who in general is very healthy, does no t take any medication. Has had what appeared to be viral illness over the last 2 to 4 weeks. He rosario s drink some coffee. Drinks about 3 cups of coffee a day. He denies any alcohol abuse. Has had sherry e chills, but no fever. Came into the hospital with palpitation and was found to have atrial fibrill ation at a rate of 112, but is 79 by the time I saw him. He had elevated BNP, elevated white count o f 13,000. Echocardiogram showed small pericardial effusion without any tamponade with a normal eject ion fraction. He has received beta blockers, received digoxin, Lovenox. Main complaint is palpitati ons and slight shortness of breath. Past Medical History: Negative. Allergies: NONE. Review of Systems: Negative. Social History: Negative. Family History: Negative. Medications: At home are none. Physical Examination: Vital Signs: Was in atrial fibrillation, rate control of 79. HEENT: Negative. Neck: Supple with no bruit. Chest: Clear. Cardiac: Revealed atrial fibrillation. No murmurs, gallops, or rubs. Abdomen: Obese, but benign. Extremities: Revealed no clubbing, cyanosis, or edema. Diagnostic Data: As stated earlier. Impression And Plan: New onset atrial fibrillation, possible myocarditis, possible pericarditis. I would feel comfortable with him going home on a low-dose beta-lopez and Xarelto. I will make sure he sees me in the office in the very near future. I think putting him on colchicine 0.6 b.i.d. is re asonable. If he does not convert on the beta lopez, we will consider cardioversion. If his sympto ms do not improve, we will consider more extensive workup including CORY, rheumatoid factor. I will d iscuss the case further with Dr. Mullins. RAGHU/SHANTELL Voice ID: [id number] Report ID: [id number]
--- NOTE | 2022-08-17 22:44 | P.PN ---
Date of Service: 08/07/22 Subjective Pts rate is controlled; continue with diuretics Physical Examination - Vital Signs reviewed - Physical Exam General: Alert, In no apparent distress, Oriented x3 Respiratory: Diminished, Crackles/rales Cardiovascular: irregular rate/rhythm, Systolic murmur Gastrointestinal: Normal bowel sounds, Soft and benign, Non-distended, No tenderness Neurological: No focal deficits Assessment & Plan - Problems (Diagnosis) (1) Atrial flutter with rapid ventricular response Current Visit: Yes Status: Acute (2) Cardiomegaly Current Visit: Yes Status: Acute (3) Shortness of breath Current Visit: Yes Status: Acute (4) Hypoalbuminemia Current Visit: Yes Status: Acute - Plan Continue with plan of care as mentioned below: 1. Echocardiogram pending 2. CT of the chest abdomen and pelvis pending 3. Rate controlled 4. Cardiology consultation appreciated 5. Aggressive diuresis 6. Strict I's and O's 7. Repeat CXR 8. Daily weights 9. Education regarding diet and treatment of congestive heart failure
--- NOTE | 2022-08-17 22:47 | P.DS ---
Discharge Date: 08/08/22 Disposition: ROUTINE DISCHARGE Discharge Condition: GOOD Reason for Admission: Dyspnea on exertion; A.flutter RVR Consultations: Dye Range Operator - Problems (1) Atrial flutter with rapid ventricular response Status: Acute (2) Cardiomegaly Status: Acute (3) Shortness of breath Status: Acute (4) Hypoalbuminemia Status: Acute Brief History of Present Illness: Patient is a 67yo who was admitted to the hospital with atrial flutter with RVR. Patient has been having persistent cough on and off for 2 weeks. He states he had something similar happen about 3 years ago. He states he was around dust and he ended up having 900 cc overall right-sided pleural effusion. He states that her not really sure how that occurred. He has been feeling congested and short of breath for the last couple weeks. Saw his primary care provider after he was told he may have cardiomegaly. He had been to the emergency room at a local hospital. He was referred over to cardiology where he was found to be in a flutter with rapid ventricular res ponse. He was sent to our hospital for further evaluation. Patient also has cardiomegaly on his chest x-ray. He will be admitted for hospitalization. Hospital Course: patient done well during hospital stay. Patient appears to have a primary lesion studies fine-needle aspiration. ENT consult as an outpatient. Echocardiogram with small pericardial effusion no other abnormalities. Patient clinically doing well at this time patient is stable for discharge with outpatient dialysis. Vital Signs/Physical Exam: Temp Pulse Resp BP Pulse Ox 97.4 F 96 H 18 119/76 96 08/08/22 13:36 08/08/22 13:36 08/08/22 13:36 08/08/22 13:36 08/08/22 13:36 General: Alert, In no apparent distress, Oriented x3 Laboratory Data at Discharge: WBC 7.80 K/uL (4.3-10.9) 08/07/22 06:09 Hgb 12.7 g/dL (13.6-17.9) L 08/07/22 06:09 Hct 37.6 % (39.6-49.0) L 08/07/22 06:09 Plt Count 542 K/uL (152-406) H 08/07/22 06:09 PT 15.7 SECONDS (9.5-12.5) H 08/07/22 06:09 INR 1.43 08/07/22 06:09 APTT 31.0 SECONDS (24.3-36.9) 08/07/22 06:09 Sodium 135 mmol/L (136-145) L 08/07/22 06:09 Potassium 4.0 mmol/L (3.5-5.1) 08/07/22 06:09 BUN 17 mg/dL (7-18) 08/07/22 06:09 Creatinine 0.70 mg/dL (0.55-1.3) 08/07/22 06:09 Glucose 96 mg/dL (74-106) 08/07/22 06:09 Phosphorus 4.0 mg/dL (2.5-4.9) 08/07/22 06:09 Magnesium 2.2 mg/dL (1.8-2.4) 08/07/22 06:09 Total Bilirubin 0.4 mg/dL (0.2-1.0) 08/07/22 06:09 AST 51 U/L (15-37) H 08/07/22 06:09 ALT 151 U/L (12-78) H 08/07/22 06:09 Alkaline Phosphatase 93 U/L (45-117) 08/07/22 06:09 Triglycerides 76 mg/dL (<150) 08/07/22 06:09 Cholesterol 137 mg/dL (<200) 08/07/22 06:09 HDL Cholesterol 31 mg/dL (40-60) L 08/07/22 06:09 Cholesterol/HDL Ratio 4.42 08/07/22 06:09 Home Medications: Albuterol Inhaler [Ventolin Inhaler*] 2 puff IH Q6H PRN 08/07/22 Benzonatate 100 mg PO Q8HP PRN 08/07/22 Digoxin [Lanoxin*] 0.125 mg PO DAILY #30 tab 08/07/22 Methylprednisolone [Medrol dosepack] 4 mg PO DIRECTED 08/07/22 Rivaroxaban [Xarelto] 20 mg PO DAILY #30 tab 08/07/22 Colchicine [Colcrys *] 0.6 mg PO BID #20 tab 08/08/22 Metoprolol Tartrate [Lopressor] 25 mg PO BID #60 tab 08/08/22 New Medications: Colchicine [Colcrys *] 0.6 mg PO BID #20 tab Digoxin [Lanoxin*] 0.125 mg PO DAILY #30 tab Metoprolol Tartrate [Lopressor] 25 mg PO BID #60 tab Rivaroxaban [Xarelto] 20 mg PO DAILY #30 tab Physician Discharge Instructions: -DC IV and DC home -Follow-up with PCP in 1 to 2 weeks -Follow-up with Cardiology on Wednesday at 1pm, Dr. Lucia's office -Follow-up with ENT, Dr. Ambrose or Dr. Kraft in 1 to 2 week -Please call Dr. Mullins at [phone] if any questions regarding hospital stay -Please call nursing station at [phone] if any nursing or medication questions -Return to the emergency room if symptoms worsen Diet: AHA Activity: Fall precautions Followup: Dustin Lucia MD [ACTIVE - CAN ADMIT] - (on Wednesday at 1PM) Mick Chaudhary MD [Primary Care Provider] - Time spent managing pt's care (in minutes): 35
== END 2022-08-08 13:25 | disposition home or self-care (01) | DRG 310 ==
LOC: ER 11:51 → ERHOLD 14:15 → 2ND 19:39
PROVIDERS: ADMIT Hospitalist; ATTEND Hospitalist
DX: I48.91 Unspecified atrial fibrillation (principal); I51.7 Cardiomegaly; E88.09 Other disorders of plasma-protein metabolism, not elsewhere classified; Z79.01 Long term (current) use of anticoagulants; Z79.899 Other long term (current) drug therapy; Z20.822 Contact with and (suspected) exposure to COVID-19
CPT/HCPCS: 0240U; 36415; 71045; 71260; 74177; 76536; 80048; 80053; 80061; 80076; 82553; 83735; 83880; 84100; 84439; 84443; 84484; 85025; 85610; 85730; 93005; 93306; 94760; 96374; 99284; J1160; J1650; Q9967

== ENCOUNTER 2022-08-17 06:30 | Day surgery (SDC) | payer OTHER ==
[2022-08-14 13:31] LABS: Potassium 3.8 mmol/L (3.5-5.1)
[2022-08-17] MEDS ORDERED: MIDAZOLAM HCL 2 MG/2 ML INJ ONE (06:41)
[2022-08-17] MEDS ORDERED: METOPROLOL TARTRATE 5 MG/5 ML INJ IV ONE (06:41)
[2022-08-17] MEDS ORDERED: MIDAZOLAM HCL 5 ML ONE ×2 (06:41→06:42)
[2022-08-17] MEDS ORDERED: FENTANYL CITR 100 MCG/2 ML ONE (06:41)
[2022-08-17] MEDS ORDERED: FLUMAZENIL 0.1 MG/ML (5 mL VIAL) IV ONE (06:42)
[2022-08-17] MEDS ORDERED: ATROPINE SULF 1 MG/10 ML SYR IV ONE (06:42)
[2022-08-17] MEDS ORDERED: NA CHLORIDE 0.9% 500 ML ONE (06:54)
--- NOTE | 2022-08-17 08:58 | OP ---
Surgeon: Dustin Lucia MD Rice Cleaning Machine Tender: Surekha Patel. Reason For Admission: Direct current cardioversion. Indication: Atrial fibrillation. The patient is 67, recent onset atrial fibrillation, small pericar dial effusion, resistance to metoprolol and Xarelto. Rate was rapid with some symptoms, brought to [facility] recovery room today as an outpatient. Description Of Procedure: He was prepped and given a total of 11 mg of Versed for total sedation. P addles were placed anterior and posterior on the chest wall. He received 1 shock of 200 joules and c onverted to sinus rhythm. There were no complications or blood loss. Final Diagnosis: Status post direct current cardioversion of atrial fibrillation to sinus rhythm. Plan: To discontinue the metoprolol, continue the rest of the medication. Continue the blood thinne r. Start him on Multaq 400 mg 1 p.o. b.i.d. He can go home today when he wakes up and I will see hi m in the office in 2 weeks. RAGHU/MADINA Voice ID: [id number] Report ID: [id number]
--- NOTE | 2022-08-17 14:56 | EKG ---
Test Date: 2022-08-17 Test Time: 08:07:50 Eggs Inspector: GALA MEASUREMENT RESULTS: Intervals: Rate: 79 CA: 260 QRSD: 110 QT: 390 QTc: 447 [place]: P: 49 CA: 260 QRS: 37 T: 41 INTERPRETIVE STATEMENTS: Sinus rhythm with 1st degree AV block Incomplete right bundle branch block Cannot rule out Inferior infarct, age undetermined Abnormal ECG Compared to ECG 08/06/2022 12:16:01 First degree AV block now present Myocardial infarct finding now present Atrial flutter no longer present Electronically Signed On 08-17-22 14:54:54 REEL CUTTER by Chris Plasencia
== END 2022-08-17 08:35 | disposition home or self-care (01) ==
LOC: CCL 06:30
DX: I48.91 Unspecified atrial fibrillation (principal); I48.92 Unspecified atrial flutter; I10 Essential (primary) hypertension; I31.39 Other pericardial effusion (noninflammatory); B33.23 Viral pericarditis; I45.19 Other right bundle-branch block; I44.0 Atrioventricular block, first degree; L03.113 Cellulitis of right upper limb; E04.1 Nontoxic single thyroid nodule; Z79.01 Long term (current) use of anticoagulants
CPT/HCPCS: 36415; 80048; 92960; 93005; J0461; J2250; J3010; J7040

== ENCOUNTER → 2022-09-09 | Day surgery (SDC) | payer OTHER ==
--- NOTE | 2022-09-09 13:59 | RAD REPORT ---
EXAM DESCRIPTION: US - Guided FNA Non Breast - 09/09/2022 11:17 am CLINICAL HISTORY: E04.1 COMPARISON: Thyroid Para Parotid Gland dated 08/07/2022; Chest Abdomen Pelvis W Cont dated 08/06/2022 TECHNIQUE: Patient presents for FNA of a left-sided thyroid mass detailed on prior 08/07/2022 thyroi d examination and 08/06/2022 CT examination. A 2 centimeter nodule was reported in the inferior left lobe. On the CT imaging the nodule is primarily in the uppermost mediastinum along the left lateral m argin of the trachea. At sonography appear roughly 2 centimeter area of more heterogeneous tissue is seen with poorly defined margins. The ultrasound FNA procedure, risks and alternatives were discussed with the patient in detail. After answering all questions both oral and written consent were obtained. Patient has no contraindicated allergy. Patient has indicates that he was off of his Xarelto medication for 3 days. Preliminary imaging of the left thyroid lobe demonstrated heterogeneous poorly defined nodule approxi mately 15 mm in size. Margins are poorly demarcated from the adjacent thyroid tissue. The anterior left neck was prepped and draped in the usual sterile fashion. Skin and deeper tissues d own to the area of concern anesthetized with 1% lidocaine. Under sonographic visualization a 25 gauge needle was advanced to the nodule. Transducer pressure on the neck was uncomfortable for the patient. With fence builder transducer pressure the mass was more poorly defined. This poor demarcation was accentuated when trying to advance the needle. Multiple to and fr o excursions of the needle tip was performed into the area of heterogeneous ill-defined tissue. The F NA procedure was rip related with 4 additional 25 gauge needles. With all attempts, the area of ill-d efined tissue was difficult to visualize. At the conclusion of the procedure there was no hematoma. Patient has breast only mild discomfort in the neck. Postprocedure care and precaution instructions were given to the patient. A sterile bandage was placed the skin puncture site. All obtained material was given to the pathology department for c ytology assessment. IMPRESSION: Ultrasound-guided FNA was performed of an area of ill-defined tissue in the inferior lef t thyroid lobe. As detailed above, the nodule was poorly defined and difficult to visualize. Definitive sampling of t he nodule with all 5 needles cannot be confirmed.
== END ==
LOC: FNA 10:00
PROVIDERS: ATTEND Otolaryngology Facial Plastic Surgery
PROC: 0GBG3ZX Excision of Left Thyroid Gland Lobe, Percutaneous Approach, Diagnostic (ICD-10-PCS; principal; 2022-09-09)
DX: E04.1 Nontoxic single thyroid nodule (principal)
CPT/HCPCS: 88162